=== PATIENT | male | born 1990 | race African-American/Black ===

== ENCOUNTER 2022-04-03 13:39 | Emergency (ER) | payer OTHER ==
[2022-04-03] MEDS ORDERED: Ketorolac Tromethamine 30 MG/ML VIAL ONE (14:58)
[2022-04-03] MEDS ORDERED: Dexamethasone 10 MG/ML VIAL ONE (14:58)
== END 2022-04-03 15:11 | disposition home or self-care (01) ==
LOC: CSHERS 13:39
DX: M79.605 Pain in left leg (principal); F17.210 Nicotine dependence, cigarettes, uncomplicated
CPT/HCPCS: 96372; J1100; J1885